=== PATIENT | female | born 1955 | race Caucasian/White ===

== ENCOUNTER 2021-03-27 15:29 | Emergency (ER) | payer OTHER ==
[2021-03-27 17:50] LABS: BASOPHIL 0.2 % (0-2); EOSINOPHIL 0.4 % (0-7); HCT 34.5 % (37.0-47.0); HGB 11.5 g/dl (12.5-16.0); LYMPHOCYTE 13.7 % (15-48); MCH 32.5 pg (25.0-31.0); MCHC 33.3 g/dL (32.0-36.0); MCV 97.5 fL (78.0-100.0); MONOCYTE 11.3 % (0-12); MPV 10.5 fL (6.0-9.5); NEUTROPHIL 73.7 % (41-80); NRBC 0; PLT 489 K/uL (150-400); RBC 3.54 M/uL (4.20-5.40); RDW 13.2 % (11.5-14.0); WBC 8.4 K/uL (4.0-10.5)
[2021-03-27 18:12] LABS: INFLUENZA A NAA NEGATIVE (NEGATIVE)
[2021-03-27 18:14] LABS: CORONAVIRUS 2019 SARS-COV-2 POSITIVE (NEGATIVE)
[2021-03-27 18:49] LABS: LACTIC ACID 1.5 mmol/L (0.4-1.9)
[2021-03-27 18:56] LABS: CREATININE 1.35 mg/dL (0.51-0.95); POTASSIUM 3.9 mmol/L (3.5-5.1)
== END 2021-03-27 19:20 | disposition left against medical advice (07) ==
LOC: FER 15:29
PROVIDERS: Nurse Practitioner Family
DX: U07.1 COVID-19 (principal); I25.2 Old myocardial infarction; F17.210 Nicotine dependence, cigarettes, uncomplicated; Z53.8 Procedure and treatment not carried out for other reasons
CPT/HCPCS: 36415; 36600; 71045; 80048; 82728; 82803; 83605; 84145; 84484; 85025; 87040; 93005; 94664; J7030; U0002